=== PATIENT | male | born 1975 | race African-American/Black ===

== ENCOUNTER 2017-12-07 14:25 | Emergency (ER) | payer OTHER ==
[~2017-12-07] VITALS: Ht 175.3 cm; Wt 113.4 kg
[~2017-12-07 14:25] MED LIST: ACETAMINOPHEN-1 EAC1 PO; AMOXICILLIN875 MG PO; ASPIRIN; ATIVAN1 MG PO; FLONASE 0.05%50 MCG NASAL; HCTZ; HYDROCHLOROTHIA25 M1 PO; HYDROCODON-ACE1 EAC7 PO; IBUPROFEN 400400 M2 PO; IBUPROFEN 800800 M1 PO; LISINOPRIL; MEDROLDOSEPACK PO; NAPROSYN250 MG PO; NORCO 5-325 TA1 EACH PO; PENICILLIN V P500 MG PO; PREDNISONE50 MG PO; PRINIVIL20 MG PO; TESSALON200 MG PO; TOPROL XL25 MG PO; TRAMADOL 50 MG50 MG PO; ZPAK PO; blood pressure
[2017-12-07] MEDS ORDERED: NORVASC10 MG PO (14:35)
[2017-12-07 14:46] LABS: URINE BILIRUBIN NEGATIVE (Negative); URINE BLOOD NEGATIVE (Negative); URINE CLARITY CLEAR; URINE COLOR YELLOW; URINE GLUCOSE-RANDOM NEGATIVE (Negative); URINE KETONES NEGATIVE (Negative); URINE LEUKOCYTES-REFLEX NEGATIVE (Negative); URINE NITRITE-REFLEX NEGATIVE (Negative); URINE PROTEIN 1+ (Negative); URINE UROBILINOGEN 0.2 E.U./dl (0.2-1.0)
[2017-12-07 14:52] LABS: ABSOLUTE BASOPHILS 0.2 thou/uL (0.0-0.2); ABSOLUTE EOSINOPHILS 0.3 thou/uL (0.0-0.7); ABSOLUTE LYMPHOCYTES 2.5 thou/uL (0.8-5.3); ABSOLUTE MONOCYTES 0.8 thou/uL (0.0-1.2); ABSOLUTE NEUTROPHILS 5.4 thou/uL (1.6-8.1); BASOPHILS 1.9 %; EOSINOPHILS 2.8 %; HEMATOCRIT 44.8 % (42.0-52.0); HEMOGLOBIN 15.4 gm/dL (14.0-18.0); LYMPHOCYTES 27.5 %; MCHC 34.4 g/dL (28.0-37.0); MCV 90.2 fL (80.0-100.0); MONOCYTES 8.3 %; MPV 9.2 fl. (7.2-11.1); NUCLEATED RBCS 0 /100WBC; PLATELET COUNT* 228 thou/uL (150-400); POLYS 59.5 %; RBC 4.96 mil/uL (4.50-6.00); RDW-CV 13.5 % (10.5-14.5); WBC 9.1 thou/uL (4.0-11.0)
[2017-12-07 14:59] LABS: CALCIUM 8.7 mg/dL (8.5-10.1); CREATININE 0.9 mg/dL (0.6-1.3); POTASSIUM 3.5 mmol/L (3.5-5.1)
[2017-12-07 15:03] LABS: ALBUMIN 4.2 g/dL (3.4-5.0); TOTAL BILIRUBIN 1.1 mg/dL (<0.1-1.0); TOTAL PROTEIN 7.9 g/dL (6.4-8.2)
[2017-12-07] MEDS ORDERED: HYDROCODONE-AP1 EAC6 PO (16:41)
[2017-12-07 16:58] VITALS: BP 120/79
== END 2017-12-07 16:59 | disposition home or self-care (01) ==
LOC: M.ERS 14:25
PROVIDERS: Physician Assistant
DX: R10.9 Unspecified abdominal pain (principal); E78.5 Hyperlipidemia, unspecified; F17.210 Nicotine dependence, cigarettes, uncomplicated